=== PATIENT | male | born 1965 | race Caucasian/White ===

== ENCOUNTER 2017-07-25 16:25 | Emergency (ER) | payer OTHER ==
[~2017-07-25] VITALS: Ht 160 cm; Wt 65.9 kg
[~2017-07-25 16:25] MED LIST: ABILIFY20 MG PO; ABILIFY30 MG PO; ABILIFY5 MG PO; ADVAIR 250/501 DISK IH; ALBUTEROL2.5 MG/3 M IH; AMBIEN10 MG; AMBIEN10 MG PO; Advair 250/50 Diskus IH; Ambien PO; BACTRIM,SEPT1 TABLET PO; BACTROBAN NASAL1 G1 BOTH NARES; BENZTROPINE ME0.5 MG PO; CIPRO500 MG PO; CLEOCIN300 MG PO; COGENTIN0.5 MG PO; COMBIVENT RESPIM4 GM IH; COMBIVENT200 INHALA; Combivent IH; DESYREL100 MG PO; DILAUDID2 MG PO; FLAGYL500 MG PO; FLEXERIL10 MG PO; FLONASE16 G1 BOTH NARES; FLOVENT 22120 INHALA IH; GEODON20 MG PO; Glucophage PO; HYDROCODON-ACE1 EAC7 PO; KEFLEX500 MG PO; LORATADINE10 M2 PO; METFORMIN HCL500 M4 PO; NAPROXEN500 MG PO; NICOTINE PATCH1 EAC2 TD; NORCO 5/3251 TABLET PO; NORVASC2.5 MG PO; PERCOCET 5/31 TABLET PO; PREDNISONE10 MG PO; PROMETHAZINE HC25 M1 PO; PROTONIX40 MG PO; PROZAC10 MG PO; PriLOSEC PO; SERTRALINE HCL100 MG PO; THIAMINE,VITAM100 MG PO; TRAMADOL HCL50 MG PO; TRAZODONE HCL100 MG PO; VENTOLIN HFA18 GM IH; VYTORIN 10/41 TABLET; Vicodin,Norco 5/325 PO; ZOFRAN ODT4 MG PO; ZOLPIDEM TARTRA10 MG PO; Zantac PO; [UNRECOGNIZED DRUG - REMARK]; [UNRECOGNIZED DRUG - REMARK]
[2017-07-25 18:19] LABS: HEMATOCRIT 43.2 % (38.0-50.0); HEMOGLOBIN 14.6 G/DL (12.5-16.6); MCH 32.4 PG (29.0-34.0); MCHC 33.8 G/DL (30.0-36.0); PLATELET COUNT 240 K/uL (156-360); RBC DIS.WIDTH-CV 13.4 % (11.8-14.6); RBC DIS.WIDTH-SD 48.1 % (39-53); WHITE BLOOD COUNT 16.4 K/uL (4.1-10.2)
[2017-07-25 18:27] LABS: CHLORIDE 105 mEq/L (99-109); POTASSIUM 4.1 mEq/L (3.7-5.4); SODIUM 138 mEq/L (136-147)
[2017-07-25 18:29] LABS: GLUCOSE 100 mg/dL (70-99)
[2017-07-25 18:33] LABS: GFR ESTIMATE (CALCULATED) > 59 mL/min/ (58.99-99999)
[2017-07-25 18:34] LABS: UREA NITROGEN (BUN) 11 mg/dL (9-23)
[2017-07-25] MEDS ORDERED: NARCAN4 MG NS (19:14)
[2017-07-25 19:26] VITALS: BP 127/90
== END 2017-07-25 19:26 | disposition home or self-care (01) ==
LOC: EME 16:25
PROVIDERS: Nurse Practitioner Family
DX: T40.1X1A Poisoning by heroin, accidental (unintentional), initial encounter (principal); G89.29 Other chronic pain; R09.02 Hypoxemia; E11.9 Type 2 diabetes mellitus without complications; I10 Essential (primary) hypertension; J44.9 Chronic obstructive pulmonary disease, unspecified; K21.9 Gastro-esophageal reflux disease without esophagitis; B19.20 Unspecified viral hepatitis C without hepatic coma; F41.9 Anxiety disorder, unspecified; F32.9 Major depressive disorder, single episode, unspecified; F17.200 Nicotine dependence, unspecified, uncomplicated; Z88.0 Allergy status to penicillin
CPT/HCPCS: 71046; 80048; 85027; 93005; 94640; 99281; 99284; J2310; J7030